=== PATIENT | female | born 1990 | race Caucasian/White ===

== ENCOUNTER 2018-02-14 17:36 | Emergency (ER) | payer MEDICAID ==
[~2018-02-14] VITALS: Ht 162.6 cm; Wt 58.0 kg
[~2018-02-14 17:36] MED LIST: CLIN300C85 PO; DOXY100T2 PO; NO HOME MEDS; PNV1TABL56 PO
[2018-02-14] MEDS ORDERED: LIDOcaine 1.5% w/epinephrine 1:200,000 5ml ampul IJ ONE (18:25)
[2018-02-14] MEDS ORDERED: HYDROcodone/acetaminophen 5mg/325mg tablet PO ONE (18:25)
[2018-02-14 18:36] VITALS: BP 161/102
[2018-02-14] MEDS ORDERED: CLIN300C85 PO (19:28)
== END 2018-02-14 19:38 | disposition home or self-care (01) ==
LOC: ER 17:37
DX: L02.415 Cutaneous abscess of right lower limb (principal); I10 Essential (primary) hypertension; K21.9 Gastro-esophageal reflux disease without esophagitis; F15.10 Other stimulant abuse, uncomplicated; F11.10 Opioid abuse, uncomplicated; Z88.1 Allergy status to other antibiotic agents; Z88.2 Allergy status to sulfonamides
CPT/HCPCS: 10060; 87070; 87077; 87186; 99284; J3490

== ENCOUNTER 2018-05-01 19:14 | Inpatient (IN) | payer MEDICAID | END 2018-05-05 16:45 | disposition home or self-care (01) | LOC: ER 19:14 → PAS IN 05-02 10:06 → ORTHO 4S 05-02 11:27 ==

== ENCOUNTER 2019-02-09 11:48 | Emergency (ER) | payer MEDICAID ==
[~2019-02-09] VITALS: Ht 162.6 cm; Wt 79.0 kg
[2019-02-09 11:53] VITALS: BP 143/96
--- NOTE | 2019-02-09 11:58 | NUR ---
PT BACK OUT TO REG AREA SO SHE CAN USE THE PHONE TO CALL [facility]. STATES THEY ARE ONLY HOLDING HER BED UNTIL NOON TODAY.
[2019-02-09] MEDS ORDERED: ONDA4TAB6 PO (12:36)
[2019-02-09] MEDS ORDERED: DIPH25CA83 PO (12:36)
== END 2019-02-09 12:50 | disposition home or self-care (01) ==
LOC: ER 11:49
DX: S11.93XA Puncture wound without foreign body of unspecified part of neck, initial encounter (principal); S41.132A Puncture wound without foreign body of left upper arm, initial encounter; S41.131A Puncture wound without foreign body of right upper arm, initial encounter; F19.10 Other psychoactive substance abuse, uncomplicated; I10 Essential (primary) hypertension; K21.9 Gastro-esophageal reflux disease without esophagitis; F15.90 Other stimulant use, unspecified, uncomplicated; F11.90 Opioid use, unspecified, uncomplicated; Z86.14 Personal history of Methicillin resistant Staphylococcus aureus infection; Z98.890 Other specified postprocedural states; Z88.2 Allergy status to sulfonamides; Z88.1 Allergy status to other antibiotic agents; Z79.899 Other long term (current) drug therapy; X58.XXXA Exposure to other specified factors, initial encounter; Y93.89 Activity, other specified; Y92.89 Other specified places as the place of occurrence of the external cause; Y99.8 Other external cause status
CPT/HCPCS: 99283

== ENCOUNTER 2019-07-21 23:03 | Emergency (ER) | payer MEDICAID ==
[~2019-07-21] VITALS: Ht 165.1 cm; Wt 77.3 kg
[~2019-07-21 23:03] MED LIST changes: -CLIN300C85 PO; +DIPH25CA83 PO; -DOXY100T2 PO; -NO HOME MEDS; +ONDA4TAB6 PO; -PNV1TABL56 PO
[2019-07-21] MEDS ORDERED: normal saline 1000ML IV soln IV ONE (23:25)
[2019-07-21] MEDS ORDERED: piperacillin/tazo 3.375gm/50ml 50 ML IV ONE (23:25)
[2019-07-21] MEDS ORDERED: iohexol 300mg/ml 100ml inj. ONE (23:31)
--- NOTE | 2019-07-21 23:58 | NUR ---
PT A DIFFICULT STICK. VEINS HAVE SCAR TISSUE. PT REPORTS A LONG HISTORY OF IV DRUG USE IN NECK, ARMS AND FEEL. ATTEMPTING TO PLACE IV.
[2019-07-22] MEDS ORDERED: NO HOME MEDS (00:05)
[2019-07-22 00:33] LABS: BASOPHILS # (AUTO) 0.1 X10'3 (0-0.2); BASOPHILS % (AUTO) 1.6 % (0-1); EOSINOPHILS # (AUTO) 0.2 X10'3 (0-0.9); EOSINOPHILS % (AUTO) 2.8 % (0-6); HEMATOCRIT 34.9 % (35.0-45.0); HEMOGLOBIN 11.7 g/dl (12.0-16.0); LYMPHOCYTES # (AUTO) 2.2 X10'3 (1.1-4.8); LYMPHOCYTES % (AUTO) 28.4 % (21-51); MEAN CORPUSCULAR HEMOGLOBIN 25.7 PG (27.0-31.0); MEAN CORPUSCULAR HGB CONC 33.5 g/dL (33.0-36.5); MEAN CORPUSCULAR VOLUME 76.7 FL (78-98); MEAN PLATELET VOLUME 7.6 FL (7.4-10.4); MONOCYTES # (AUTO) 0.4 X10'3 (0-0.9); MONOCYTES % (AUTO) 5.3 % (2-12); NEUTROPHILS # (AUTO) 4.8 X10'3 (1.8-7.7); NEUTROPHILS % (AUTO) 61.9 % (42-75); PLATELET COUNT 390 X10'3 (140-440); RED BLOOD COUNT 4.55 X10'6 (4.20-5.60); RED CELL DISTRIBUTION WIDTH 14.1 % (11.5-14.5); WHITE BLOOD COUNT 7.8 X10'3 (4.5-11.0)
--- NOTE | 2019-07-22 00:34 | NUR ---
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 SHE HAS NEEDLE TRACKING TO HER ENTIRE CHEST, BOTH SIDES OF HER NECK AND UP AND DOWN HER ARMS. SHE HAS BRUISES GENERALIZED ON HER ENTIRE BODY. SHE HAS BEEN INJECTING SUB Q/IM INTO WHEREVER SHE CAN. SHE TELLS ME SHE HAS A 9 Y/O AND A 2 Y/O. SHE STATES HER '' IS IN JAIL.
[2019-07-22 00:49] LABS: ALANINE AMINOTRANSFERASE 150 U/L (12-78); ALBUMIN 3.4 G/DL (3.4-5.0); ALBUMIN/GLOBULIN RATIO 0.6 (1.1-1.5); ALKALINE PHOSPHATASE 85 IU/L (46-116); ANION GAP 7 (8-16); ASPARTATE AMINO TRANSFERASE 88 U/L (10-37); BILIRUBIN,TOTAL 0.2 MG/DL (0.1-1.0); BLOOD UREA NITROGEN 14 MG/DL (7-18); BUN/CREATININE RATIO 18.9 (6.6-38.0); CALCIUM 9.1 MG/DL (8.5-10.1); CHLORIDE 104 MMOL/L (99-107); CREATININE 0.74 MG/DL (0.40-0.90); MAGNESIUM 2.3 MG/DL (1.5-2.4); SODIUM 141 MMOL/L (135-145); TOTAL CARBON DIOXIDE 29.8 MMOL/L (24-32); TOTAL PROTEIN 8.8 G/DL (6.4-8.2); eGFR > 90 ML/MIN
[2019-07-22 00:52] LABS: PARTIAL THROMBOPLASTIN TIME 29 SECONDS (22-32)
[2019-07-22 00:53] LABS: GLUCOSE 77 MG/DL (70-104)
[2019-07-22] MEDS ORDERED: CEPH500C5 PO (01:20)
[2019-07-22 02:14] VITALS: BP 136/78
== END 2019-07-22 02:16 | disposition home or self-care (01) ==
LOC: ER 23:04
DX: S71.101A Unspecified open wound, right thigh, initial encounter (principal); S80.12XA Contusion of left lower leg, initial encounter; S80.11XA Contusion of right lower leg, initial encounter; S40.022A Contusion of left upper arm, initial encounter; S40.021A Contusion of right upper arm, initial encounter; L02.415 Cutaneous abscess of right lower limb; F19.10 Other psychoactive substance abuse, uncomplicated; I10 Essential (primary) hypertension; K21.9 Gastro-esophageal reflux disease without esophagitis; F15.90 Other stimulant use, unspecified, uncomplicated; F11.90 Opioid use, unspecified, uncomplicated; Z60.2 Problems related to living alone; Z86.14 Personal history of Methicillin resistant Staphylococcus aureus infection; Z98.890 Other specified postprocedural states; Z88.2 Allergy status to sulfonamides; Z88.8 Allergy status to other drugs, medicaments and biological substances; Z79.899 Other long term (current) drug therapy; X58.XXXA Exposure to other specified factors, initial encounter; Y93.89 Activity, other specified; Y92.89 Other specified places as the place of occurrence of the external cause; Y99.8 Other external cause status
CPT/HCPCS: 36415; 71045; 73701; 80053; 83605; 83735; 84145; 85025; 85610; 85730; 87040; 93005; 96365; 99285; J2543; J7030; Q9967

== ENCOUNTER 2019-08-31 12:58 | Outpatient (CLI) | payer MEDICAID ==
[~2019-08-31 12:58] MED LIST changes: +CEPH500C5 PO; -DIPH25CA83 PO; +NO HOME MEDS; -ONDA4TAB6 PO
== END 2019-08-31 23:59 | disposition home or self-care (01) ==
LOC: RAD 12:58
PROVIDERS: ATTEND Obstetrics & Gynecology
DX: F11.20 Opioid dependence, uncomplicated (principal); Z79.899 Other long term (current) drug therapy
CPT/HCPCS: 93005

== ENCOUNTER 2021-08-24 12:31 | Emergency (ER) | payer MEDICAID ==
[~2021-08-24] VITALS: Ht 160 cm; Wt 63.6 kg
[~2021-08-24 12:31] MED LIST changes: -CEPH500C5 PO
[2021-08-24 12:39] VITALS: BP 164/104
[2021-08-24] MEDS ORDERED: metroNIDAZOLE 500mg tablet PO ONE (13:05)
[2021-08-24] MEDS ORDERED: CefTRIAXone 250MG IM Kit w/LIDOcaine IM ONE (13:05)
[2021-08-24] MEDS ORDERED: METR-159 PO (13:05)
--- NOTE | 2021-08-24 13:17 | NUR ---
po med given im given
[2021-08-24 13:20] LABS: URINE HCG NEGATIVE (NEG)
[2021-08-24 13:31] LABS: URINE AMPHETAMINE SCREEN POSITIVE (Neg); URINE BARBITUATE SCREEN NEGATIVE (Neg); URINE BENZODIAZEPINES SCREEN POSITIVE (Neg); URINE CANNABINOID SCREEN NEGATIVE (Neg); URINE COCAINE SCREEN NEGATIVE (Neg); URINE METHADONE SCREEN NEGATIVE (Neg); URINE OPIATE SCREEN POSITIVE (Neg); URINE PHENCYCLIDINE SCREEN NEGATIVE (Neg)
== END 2021-08-24 13:34 | disposition home or self-care (01) ==
LOC: ER 12:31
DX: N76.0 Acute vaginitis (principal); I10 Essential (primary) hypertension; K21.9 Gastro-esophageal reflux disease without esophagitis; F12.90 Cannabis use, unspecified, uncomplicated; F15.90 Other stimulant use, unspecified, uncomplicated; F11.90 Opioid use, unspecified, uncomplicated; Z86.19 Personal history of other infectious and parasitic diseases; Z86.14 Personal history of Methicillin resistant Staphylococcus aureus infection; Z98.890 Other specified postprocedural states; Z60.2 Problems related to living alone; Z88.1 Allergy status to other antibiotic agents; Z88.8 Allergy status to other drugs, medicaments and biological substances; Z79.2 Long term (current) use of antibiotics
CPT/HCPCS: 36415; 80305; 81025; 87491; 87591; 96372; 99283; J0696

== ENCOUNTER 2022-03-13 18:46 | Emergency (ER) | payer MEDICAID ==
[~2022-03-13] VITALS: Ht 162.6 cm; Wt 63.0 kg
[2022-03-13 19:57] VITALS: BP 154/101
== END 2022-03-13 22:00 | disposition left against medical advice (07) ==
LOC: ER 18:46
DX: R10.9 Unspecified abdominal pain (principal); Z53.21 Procedure and treatment not carried out due to patient leaving prior to being seen by health care provider

== ENCOUNTER 2022-11-11 14:11 | Emergency (ER) | payer MEDICAID ==
[~2022-11-11] VITALS: Ht 165.1 cm; Wt 63.6 kg
[2022-11-11 14:23] VITALS: BP 162/97
[2022-11-11 15:56] LABS: URINE HCG NEGATIVE (NEG)
[2022-11-11] MEDS ORDERED: cephalexin 250mg capsule PO ONE (16:05)
[2022-11-11] MEDS ORDERED: DOXY-356 PO (16:13)
[2022-11-11] MEDS ORDERED: CEPH250T PO (16:13)
== END 2022-11-11 16:25 | disposition home or self-care (01) ==
LOC: ER 14:11
DX: L03.115 Cellulitis of right lower limb (principal); I10 Essential (primary) hypertension; K21.9 Gastro-esophageal reflux disease without esophagitis; F12.90 Cannabis use, unspecified, uncomplicated; F15.90 Other stimulant use, unspecified, uncomplicated; Z88.2 Allergy status to sulfonamides; Z79.2 Long term (current) use of antibiotics
CPT/HCPCS: 73564; 81025; 99284

== ENCOUNTER 2023-03-15 17:55 | Emergency (ER) | payer MEDICAID ==
[~2023-03-15] VITALS: Ht 160 cm; Wt 84.0 kg
[2023-03-15 18:40] VITALS: BP 151/94; PULSE 83; RESP 24; TEMP 97.9; O2SAT 99
== END 2023-03-15 21:05 | disposition left against medical advice (07) ==
LOC: ER 17:56
DX: F11.10 Opioid abuse, uncomplicated (principal); Z53.21 Procedure and treatment not carried out due to patient leaving prior to being seen by health care provider
CPT/HCPCS: 99281

== ENCOUNTER 2023-07-09 11:11 | Outpatient (CLI) | payer MEDICAID | END 2023-07-09 23:59 | disposition home or self-care (01) | LOC: RAD 11:11 | PROVIDERS: ATTEND Physician Assistant | DX: I51.7 Cardiomegaly (principal); F11.20 Opioid dependence, uncomplicated | CPT/HCPCS: 93005 ==

== ENCOUNTER 2024-07-30 12:32 | Emergency (ER) | payer MEDICAID ==
[~2024-07-30] VITALS: Ht 162.6 cm; Wt 79.6 kg
[2024-07-30 13:28] VITALS: TEMP 97.5
[2024-07-30 13:42] LABS: BASOPHILS % (AUTO) 0.5 % (0-1); EOSINOPHILS # (AUTO) 0.2 X10'3 (0-0.9); EOSINOPHILS % (AUTO) 2.8 % (0-6); HEMOGLOBIN 13.3 g/dl (12.0-16.0); LYMPHOCYTES # (AUTO) 2.8 X10'3 (1.1-4.8); MEAN CORPUSCULAR HEMOGLOBIN 27.5 PG (27.0-31.0); MEAN CORPUSCULAR HGB CONC 33.2 g/dL (33.0-36.5); MEAN CORPUSCULAR VOLUME 82.8 FL (78-98); MEAN PLATELET VOLUME 9.7 FL (7.4-10.4); MONOCYTES # (AUTO) 0.6 X10'3 (0-0.9); MONOCYTES % (AUTO) 8.5 % (2-12); NEUTROPHILS # (AUTO) 3.6 X10'3 (1.8-7.7); NEUTROPHILS % (AUTO) 50.2 % (42-75); PLATELET COUNT 303 X10'3 (140-440); RED BLOOD COUNT 4.84 X10'6 (4.20-5.60); RED CELL DISTRIBUTION WIDTH 13.6 % (11.5-14.5); WHITE BLOOD COUNT 7.2 X10'3 (4.5-11.0)
[2024-07-30 13:45] LABS: BILIRUBIN,URINE NEGATIVE (Neg); CLARITY,URINE SLIGHTLY CLOUDY (Clear); COLOR,URINE YELLOW (Yellow); GLUCOSE, URINE NEGATIVE (Neg); KETONES,URINE NEGATIVE (Neg); LEUKOCYTE ESTERASE ,URINE TRACE (Neg); NITRITES, URINE NEGATIVE (Neg); OCCULT BLOOD,URINE NEGATIVE (Neg); PH,URINE 5.5 (4.8-8.0); PROTEIN,URINE NEGATIVE (Neg); URINE HCG NEGATIVE (NEG); UROBILINOGEN,URINE 0.2 E.U/dL (0.2-1.0)
[2024-07-30 13:46] LABS: UA COLLECTION TYPE CLN CATCH MIDSTREAM
[2024-07-30 13:52] LABS: BACTERIA,URINE 1+ /HPF (Neg); MUCUS STRANDS MANY /LPF (Neg); RBC,URINE 0-2 /HPF (0-2); SQUAMOUS EPITHELIAL CELL,UR MANY /LPF (FEW)
[2024-07-30 14:01] LABS: ALANINE AMINOTRANSFERASE 128 U/L (12-78); ALBUMIN 3.9 G/DL (3.4-5.0); ALBUMIN/GLOBULIN RATIO 0.8 (1.1-1.5); ALKALINE PHOSPHATASE 59 IU/L (46-116); ANION GAP 5 (8-16); ASPARTATE AMINO TRANSFERASE 64 U/L (10-37); BILIRUBIN,TOTAL 0.4 MG/DL (0.1-1.0); BLOOD UREA NITROGEN 13 MG/DL (7-18); BUN/CREATININE RATIO 16.9 (10.0-20.0); CHLORIDE 104 MMOL/L (99-107); CREATININE 0.77 MG/DL (0.40-0.90); GLUCOSE 98 MG/DL (70-104); LIPASE 36 U/L (16-77); POTASSIUM 4.1 MMOL/L (3.5-5.1); SODIUM 137 MMOL/L (135-145); TOTAL CARBON DIOXIDE 28.4 MMOL/L (24-32); TOTAL PROTEIN 8.5 G/DL (6.4-8.2); eCRCL 88 ML/MIN; eGFR 85 ML/MIN
[2024-07-30] MEDS ORDERED: iohexol 300mg/ml 100ml inj. ONE (14:39)
[2024-07-30 16:20] LABS: HCG SERUM QL NEGATIVE
[2024-07-30 17:13] VITALS: BP 108/87; PULSE 60; RESP 16; O2SAT 98
== END 2024-07-30 17:18 | disposition home or self-care (01) ==
LOC: ER 12:33
DX: R10.13 Epigastric pain (principal); I10 Essential (primary) hypertension; K21.9 Gastro-esophageal reflux disease without esophagitis; F11.90 Opioid use, unspecified, uncomplicated; F12.90 Cannabis use, unspecified, uncomplicated; Z88.2 Allergy status to sulfonamides; Z88.1 Allergy status to other antibiotic agents; F15.90 Other stimulant use, unspecified, uncomplicated
CPT/HCPCS: 36415; 74177; 80053; 81001; 81025; 83690; 84703; 85025; 99285; Q9967